=== PATIENT | female | born 1950 | race Caucasian/White ===

== ENCOUNTER 2024-07-07 06:30 | Day surgery (SDC) | payer OTHER ==
[2024-06-29 14:08] VITALS: BMI 24.0
[~2024-07-07 06:30] MED LIST: LACTATED RINGERS SOLUTION 1,000 ML IV SCH; oxyCODONE HCL 5 MG TABLET PO PRN
[2024-07-07] MEDS ORDERED: SUCCINYLCHOLINE CHLORIDE 200 MG/10 ML SYRINGE ONE (07:34)
[2024-07-07] MEDS ORDERED: DEXAMETHASONE SOD PHOSPHATE 4 MG/1 ML VIAL ONE (07:35)
[2024-07-07] MEDS ORDERED: LIDOCAINE HCL/PF 2% SDV 5ML VIAL ONE (07:35)
[2024-07-07] MEDS ORDERED: PROPOFOL 40 ML ONE (07:35)
[2024-07-07] MEDS ORDERED: LIDOCAINE 1%/EPI 1:100000 (20 ML MULTI DOSE VIAL) ONE (07:36)
[2024-07-07] MEDS ORDERED: ONDANSETRON 4 MG/2 ML VIAL ONE (07:36)
[2024-07-07] MEDS ORDERED: BUPIVACAINE HCL/PF 2.5 MG/ML - 30 ML VIAL IJ ONE ×2 (07:36→12:58)
[2024-07-07] MEDS ORDERED: ceFAZolin SODIUM 1 GM VIAL ONE ×2 (07:36→15:08)
[2024-07-07] MEDS ORDERED: MIDAZOLAM HCL 2 MG/2 ML SINGLE DOSE VIAL ONE (07:42)
[2024-07-07] MEDS ORDERED: EPINEPHrine 1:1000 P/F - 1 MG/ML AMP ONE (08:03)
[2024-07-07] MEDS ORDERED: LIDOCAINE HCL 1%, 10 MG/ML (20ML VIAL) ONE ×2 (08:03→08:07)
[2024-07-07] MEDS ORDERED: ACETAMINOPHEN INJECTION 100 ML ONE ×2 (08:10→15:10)
[2024-07-07] MEDS ORDERED: ePHEDrine SULFATE 50 MG/1 ML AMPULE ONE ×3 (08:51→13:37)
[2024-07-07] MEDS ORDERED: SODIUM CHLORIDE 0.9% P/F 10 ML VIAL IJ ONE (11:38)
[2024-07-07] MEDS ORDERED: PROPOFOL 20 ML ONE (12:44)
[2024-07-07] MEDS ORDERED: SEVOFLURANE 250 ML BTL ONE (13:07)
[2024-07-07] MEDS ORDERED: BACITRACIN ZINC 15 GM TUBE TOPICAL OINTMENT ONE (14:41)
[2024-07-07] MEDS: ONDANSETRON 4 MG/2 ML VIAL IVPUSH PRN (16:32)
[2024-07-07] MEDS ORDERED: PROMETHAZINE HCL 25 MG/1 ML VIAL ONE (16:34)
[2024-07-07] MEDS: PROMETHAZINE HCL 25 MG/1 ML VIAL IVPB ONE (16:40)
[2024-07-07 17:04] VITALS: RESP 16
[2024-07-07] MEDS ORDERED: PROMETHAZINE HCL 25 MG/1 ML VIAL IVPB PRN (17:54)
[2024-07-07 18:54] VITALS: BP 120/62; PULSE 79; TEMP 97.2
== END 2024-07-07 18:45 | disposition home or self-care (01) ==
LOC: FASU 06:30
PROVIDERS: ATTEND Surgery
PROC: 0H0V3ZZ Alteration of Bilateral Breast, Percutaneous Approach (ICD-10-PCS; 2024-07-07)
PROC: 0H0V0ZZ Alteration of Bilateral Breast, Open Approach (ICD-10-PCS; principal; 2024-07-07 09:30)
PROC: 0H0V0ZZ Alteration of Bilateral Breast, Open Approach (ICD-10-PCS; 2024-07-07 09:30)
DX: N62 Hypertrophy of breast (principal); N64.81 Ptosis of breast
CPT/HCPCS: 88305-TC; 94760; J0131